=== PATIENT | female | born 1985 | race Caucasian/White ===

== ENCOUNTER → 2020-12-19 | Outpatient (CLI) | payer OTHER ==
[~2020-12-19] MED LIST: ASPIRIN EC81 MG PO; DOXYCYCLINE HY100 M2 PO; DRISDOL1250 MCG PO; HYDROCHLOROTHIA25 MG PO; HYDROCODON-ACE1 EAC4 PO; LO-DOSE ASPIRIN81 MG PO; LOPRESSOR 25 MG25 MG PO; METOPROLOL PO; NITROSTAT 0.40.4 MG SL; NITROSTAT0.4 MG SL
== END ==
LOC: US 12-15 10:00
DX: N63.20 Unspecified lump in the left breast, unspecified quadrant (principal)
CPT/HCPCS: 76641-LT

== ENCOUNTER → 2021-03-09 | Outpatient (CLI) | payer OTHER | LOC: KOH-I 11:37 | DX: D72.829 Elevated white blood cell count, unspecified (principal) | CPT/HCPCS: 71046 ==

== ENCOUNTER 2021-04-06 08:02 | Observation (INO) | payer OTHER ==
[~2021-04-06] VITALS: Ht 175.3 cm; Wt 97.1 kg
[2021-04-06 09:40] LABS: HEMOGLOBIN 13.7 gm/dl (12.3-15.3); RED BLOOD COUNT 4.45 M/UL (4.00-5.10); WHITE BLOOD COUNT 18.7 K/UL (4.5-11.0)
[2021-04-06 10:25] LABS: BUN/CREATININE RATIO 9 (0-10)
[2021-04-06] MEDS ORDERED: HYDROCHLOROTHIA25 MG PO (12:56)
[2021-04-06] MEDS ORDERED: LOPRESSOR 25 MG25 MG PO (12:57)
[2021-04-06] MEDS ORDERED: DRISDOL1250 MCG PO (12:59)
--- NOTE | 2021-04-06 18:08 | NUR ---
PATIENT NOTED TO BE COMPLAINING OF INCREASED CHEST PAIN AT THIS TIME. MADE AWARE. HE STATES TO GET AN EKG AND CALL CARDIOLOGY ABOUT THE CASE. PATIENT DENIES ANY OTHER SYMPTOMS. HR NOTED TO BE 120'S - 130'S.
--- NOTE | 2021-04-06 18:11 | NUR ---
CONTACTED AT THIS TIE AND STATES TO ONLY DO EKG AT THIS TIME. ORDERS PUT IN AND AWATING RESULTS AT THIS TIME.
[2021-04-07 04:49] LABS: HEMOGLOBIN 11.7 gm/dl (12.3-15.3); RED BLOOD COUNT 3.87 M/UL (4.00-5.10); WHITE BLOOD COUNT 11.8 K/UL (4.5-11.0)
[2021-04-07 05:15] LABS: BUN/CREATININE RATIO 10 (0-10)
[2021-04-07] MEDS ORDERED: LOPRESSOR 25 MG25 MG PO (10:30)
[2021-04-07] MEDS ORDERED: ASPIRIN EC81 MG PO (10:30)
[2021-04-07] MEDS ORDERED: DOXYCYCLINE HY100 M2 PO (10:30)
[2021-04-07] MEDS ORDERED: NITROSTAT0.4 MG SL (10:55)
[2021-04-07 15:11] LABS: LYME IGG/IGM AB <0.91 ISR (0.00-0.90)
[2021-04-08] MEDS ORDERED: METOPROLOL PO (16:41)
[2021-04-08] MEDS ORDERED: DOXYCYCLINE HY100 M2 PO (16:43)
[2021-04-08] MEDS ORDERED: LO-DOSE ASPIRIN81 MG PO (16:44)
[2021-04-08] MEDS ORDERED: NITROSTAT 0.40.4 MG SL (16:44)
[2021-04-16] MEDS ORDERED: HYDROCODON-ACE1 EAC4 PO (11:52)
== END 2021-04-07 11:28 | disposition home or self-care (01) ==
LOC: ER1 08:02 → CDU 10:30 → MED SURG 4 10:30
PROVIDERS: Internal Medicine; Physician Assistant; ADMIT Internal Medicine
DX: R07.89 Other chest pain (principal); E87.6 Hypokalemia; S20.361A Insect bite (nonvenomous) of right front wall of thorax, initial encounter; D72.829 Elevated white blood cell count, unspecified; I10 Essential (primary) hypertension; F17.210 Nicotine dependence, cigarettes, uncomplicated; F12.10 Cannabis abuse, uncomplicated; R94.31 Abnormal electrocardiogram [ECG] [EKG]; R00.2 Palpitations; Z88.1 Allergy status to other antibiotic agents; Z79.899 Other long term (current) drug therapy; Z20.822 Contact with and (suspected) exposure to COVID-19; W57.XXXA Bitten or stung by nonvenomous insect and other nonvenomous arthropods, initial encounter
CPT/HCPCS: ECHO; 0240U; 36415; 71046; 80048; 80053; 80307; 81001; 82550; 82553; 83735; 83874; 83880; 84132; 84439; 84443; 84484; 84703; 85025; 85379; 86618; 93005; 93306; 96372; 96374; 96375; 96376; 99285; G0378; J1650; J2060; J2270; J2405; J3480

== ENCOUNTER → 2021-04-08 | Outpatient (CLI) | payer OTHER ==
[2021-04-08 14:05] LABS: HEMOGLOBIN 13.9 gm/dl (12.3-15.3); RED BLOOD COUNT 4.57 M/UL (4.00-5.10); WHITE BLOOD COUNT 14.8 K/UL (4.5-11.0)
[2021-04-08 14:30] LABS: BUN/CREATININE RATIO 9 (0-10)
== END ==
LOC: OPSV2 11:30
PROVIDERS: Obstetrics & Gynecology
DX: Z01.812 Encounter for preprocedural laboratory examination (principal); N92.6 Irregular menstruation, unspecified
CPT/HCPCS: 80053; 85025

== ENCOUNTER → 2021-04-16 | Day surgery (SDC) | payer OTHER | END | disposition home or self-care (01) | LOC: OR 09:43 | PROVIDERS: Obstetrics & Gynecology | PROC: 0UJD8ZZ Inspection of Uterus and Cervix, Via Natural or Artificial Opening Endoscopic (ICD-10-PCS; 2021-04-16) | PROC: 0UDB7ZZ Extraction of Endometrium, Via Natural or Artificial Opening (ICD-10-PCS; principal; 2021-04-16 10:10) | DX: N93.9 Abnormal uterine and vaginal bleeding, unspecified (principal); E55.9 Vitamin D deficiency, unspecified; E78.5 Hyperlipidemia, unspecified; I10 Essential (primary) hypertension; F17.210 Nicotine dependence, cigarettes, uncomplicated; R00.0 Tachycardia, unspecified; Z88.8 Allergy status to other drugs, medicaments and biological substances; Z79.82 Long term (current) use of aspirin; Z79.899 Other long term (current) drug therapy; Z20.822 Contact with and (suspected) exposure to COVID-19 | CPT/HCPCS: 36415; 84132; 84702; J1100; J2001; J2405; J2704; J2795; J3010; J7120 ==

== ENCOUNTER → 2021-07-18 | Outpatient (CLI) | payer OTHER | LOC: RAD 19:21 | DX: R06.2 Wheezing (principal) | CPT/HCPCS: 71046 ==

== ENCOUNTER → 2021-08-13 | Outpatient (CLI) | payer OTHER | LOC: HEART 5 08:30 | DX: R07.9 Chest pain, unspecified (principal); R00.2 Palpitations | CPT/HCPCS: 93306 ==

== ENCOUNTER → 2022-01-06 | Outpatient (CLI) | payer OTHER | LOC: KOH-I 14:01 | DX: M25.552 Pain in left hip (principal); R20.0 Anesthesia of skin; R06.00 Dyspnea, unspecified; M47.816 Spondylosis without myelopathy or radiculopathy, lumbar region | CPT/HCPCS: 71046; 72100; 73502 ==

== ENCOUNTER → 2022-01-20 | Outpatient (CLI) | payer OTHER | LOC: KOH-I 01-19 15:30 | DX: M79.604 Pain in right leg (principal); M79.89 Other specified soft tissue disorders | CPT/HCPCS: 93971 ==

== ENCOUNTER → 2022-08-05 | Outpatient (CLI) | payer OTHER ==
[~2022-08-05] MED LIST changes: +LEVOFLOXACIN500 MG PO
== END ==
LOC: KOH-I 09:20
DX: J40 Bronchitis, not specified as acute or chronic (principal)
CPT/HCPCS: 71046

== ENCOUNTER 2022-08-08 18:21 | Emergency (ER) | payer OTHER ==
[~2022-08-08 18:21] MED LIST changes: -LEVOFLOXACIN500 MG PO
[2022-08-08 20:22] LABS: HEMOGLOBIN 13.5 gm/dl (12.3-15.3); RED BLOOD COUNT 4.57 M/UL (4.00-5.10); WHITE BLOOD COUNT 15.2 K/UL (4.5-11.0)
[2022-08-08 20:51] LABS: BUN/CREATININE RATIO 9 (0-10)
[2022-08-09] MEDS ORDERED: DOXYCYCLINE HY100 M2 PO (04:08)
[2022-08-09] MEDS ORDERED: LEVOFLOXACIN500 MG PO (04:27)
== END 2022-08-09 04:22 | disposition home or self-care (01) ==
LOC: ER1 18:21
PROVIDERS: Physician Assistant
DX: R07.89 Other chest pain (principal); J32.9 Chronic sinusitis, unspecified; G47.30 Sleep apnea, unspecified; I10 Essential (primary) hypertension; K21.9 Gastro-esophageal reflux disease without esophagitis; F17.210 Nicotine dependence, cigarettes, uncomplicated; Z51.81 Encounter for therapeutic drug level monitoring; Z20.822 Contact with and (suspected) exposure to COVID-19
CPT/HCPCS: 71045; 80053; 82550; 82553; 83880; 84484; 84703; 85025; 85379; 85610; 85730; 93005; 99285; U0002